=== PATIENT | female | born 2000 | race Hispanic/Latino ===

== ENCOUNTER 2019-02-12 07:55 | Outpatient (CLI) | payer OTHER ==
--- NOTE | 2019-02-12 09:04 | ULT ---
LIMITED ULTRASOUND LEFT BREAST: HISTORY: Palpable abnormalities. FINDINGS: Limited sonographic evaluation of the left breast was performed in the region of patient's palpable a bnormalities. There are 3 circumscribed hypoechoic masses which do not demonstrate posterior shadowi ng seen within the left breast in the region of palpable abnormalities. These masses are located at the 7 o'clock, 12 o'clock, and 6 o'clock positions. The mass in the 7 o'clock position measures 3.4 cm in maximal dimensions, mass at the 12 o'clock position measures 4.6 cm in maximal dimensions, and the mass at the 6 o'clock position measures 1.2 cm in maximal dimensions. The patient also has palpable abnormalities in the right breast with at least 3 hypoechoic circumscri bed masses also seen in the right breast. Given bilateral benign findings of well-circumscribed mass es in a patient of this age, findings are most likely related to fibroadenomas. IMPRESSION: 1. BIRADS category 2, benign findings. Mammographic screening is recommended according to ACR guide lines. 2. Circumscribed bilateral breast masses likely related to fibroadenomas. POS: OFF
--- NOTE | 2019-02-12 09:06 | ULT ---
RIGHT BREAST ULTRASOUND: HISTORY: Palpable abnormalities in the bilateral breasts: COMPARISON: Left breast ultrasound. FINDINGS: There are circumscribed hypoechoic masses seen in the right breast with at least 3 separate masses no dustin at the 9 o'clock and 10 o'clock positions. The largest mass measures approximately 1.9 cm at the 10 o'clock position. As noted on prior report of ultrasound of left breast, given bilateral hypoech oic circumscribed masses without evidence of posterior shadowing suggests bilateral fibroadenomas as well as benign findings. IMPRESSION: 1. BIRADS category 2, benign findings. Mammographic screening is recommended according to ACR guide lines. 2. Hypoechoic masses in the bilateral breasts most likely related to fibroadenomas. POS: OFF
== END 2019-02-12 07:56 | disposition home or self-care (01) ==
LOC: BICULT 07:55
PROVIDERS: ATTEND Obstetrics & Gynecology
DX: Z12.31 Encounter for screening mammogram for malignant neoplasm of breast (principal); N63.10 Unspecified lump in the right breast, unspecified quadrant; N63.20 Unspecified lump in the left breast, unspecified quadrant

== ENCOUNTER 2020-02-13 15:48 | Outpatient (CLI) | payer BC ==
--- NOTE | 2020-02-13 16:53 | ULT ---
EXAM: LEFT BREAST ULTRASOUND: 02/13/20 HISTORY: Follow-up masses in left breast. COMPARISON: 02/12/19. FINDINGS: The largest mass in the left breast is at 7 o'clock 1 cm from the nipple. This mass now measures 2.3 x 5.2 x 5.4 cm where it previously measured 2.2 x 3.4 x 4.5 cm showing definite increase in size. The next largest mass is somewhat serpentine in shape and lobulated measuring 2.8 x 1.7 x 4.6 cm in size and is noted in the 12 o'clock position 1 cm from the nipple. At the time of the prior study, this m ass measured 1.4 x 3.5 x 4.6 cm in size. Several other much smaller circumscribed hypodensities are s een evidence or multiple fibroadenomas. IMPRESSION: Multiple fibroadenomas. The largest of which is at 7 o'clock 1 cm from the nipple shows an increase i n size from last year's exam. POS: OFF
--- NOTE | 2020-02-13 16:53 | ULT ---
RIGHT BREAST ULTRASOUND: Date: 02/13/2020 HISTORY: Follow-up right breast masses. COMPARISON: 02/12/2019. FINDINGS: The largest mass on the right side is at 9 o'clock, 6.0 cm from the nipple, measuring 1.2 x 1.9 x 1.9 cm in size. At least one other lobulated mass is noted at 10 o'clock, 2.0 cm from the nipple, measur ing 1.2 x 0.9 x 1.7 cm in size. IMPRESSION: Multiple fibroadenomas. This ultrasound examination would be consistent with a BI-RADS Category 2 - Benign findings. The duane ent is scheduled for resection of the largest masses on the right side because of symptoms. POS: OFF
== END 2020-02-13 15:49 | disposition home or self-care (01) ==
LOC: BICULT 15:48
PROVIDERS: ATTEND Nurse Practitioner Family
DX: D24.1 Benign neoplasm of right breast (principal); D24.2 Benign neoplasm of left breast; N64.4 Mastodynia